=== PATIENT | female | born 1955 | race Native Hawaiian/Other Pacific Islander ===

== ENCOUNTER 2018-10-26 15:08 | Emergency (ER) | payer OTHER ==
[~2018-10-26] VITALS: Ht 172.7 cm; Wt 108.9 kg
[2018-10-26 15:24] VITALS: BP 171/88; TEMP 97.8
[2018-10-26 15:42] LABS: PLATELET COUNT 454 K/uL (152-353)
[2018-10-26 15:48] LABS: POTASSIUM 3.5 mmol/L (3.6-5.2)
== END 2018-10-26 18:15 | disposition short-term general hospital (02) ==
LOC: ED 15:08
PROVIDERS: Emergency Medicine
DX: I21.4 Non-ST elevation (NSTEMI) myocardial infarction (principal); J18.9 Pneumonia, unspecified organism; E11.65 Type 2 diabetes mellitus with hyperglycemia
CPT/HCPCS: 36415; 80053; 83735; 84443; 84484; 85027; 85730; 87040; 87502; 87651; 93005; 96365; 96372; 99284; J0696; J1815

== ENCOUNTER 2018-11-05 17:00 | Inpatient (IN) | payer OTHER ==
[~2018-11-05] VITALS: Ht 172.7 cm; Wt 108.6 kg
[2018-11-05 21:35] VITALS: BP 147/82; TEMP 98; Ht 172.7 cm; Wt 108.6 kg
[2018-11-06] MEDS ORDERED: INSUINJP SC (04:40)
[2018-11-06] MEDS ORDERED: PEPCID40 MG PO (04:42)
[2018-11-06] MEDS ORDERED: ASA LOW DOSE81 MG PO (04:43)
[2018-11-06] MEDS ORDERED: LIPITOR80 MG PO (04:44)
[2018-11-06] MEDS ORDERED: CARV25TA PO (04:45)
[2018-11-06] MEDS ORDERED: FURO40TA93 PO (04:46)
[2018-11-06] MEDS ORDERED: LOSA50TA PO (04:48)
[2018-11-06] MEDS ORDERED: SPIRONOLACT25 MG PO (04:49)
[2018-11-06] MEDS ORDERED: CIPR1SUS OTIC (04:51)
[2018-11-06] MEDS ORDERED: KEPPRA750 MG PO (04:53)
[2018-11-06] MEDS ORDERED: PHENYTOIN EX300 MG PO (04:58)
[2018-11-06] MEDS ORDERED: SERTRALINE HYD100 MG PO (05:03)
[2018-11-06] MEDS ORDERED: ELIQUIS5 MG PO (05:05)
[2018-11-06] MEDS ORDERED: LEVO-T25 MCG PO (05:08)
[2018-11-06] MEDS ORDERED: INSUINJ20 SC (05:11)
[2018-11-06 07:30] VITALS: BP 151/79; TEMP 98
[2018-11-06 19:30] VITALS: BP 127/77; TEMP 98.4
[2018-11-07 07:30] VITALS: BP 131/72; TEMP 98.3
[2018-11-07 19:30] VITALS: BP 165/88; TEMP 98.2
[2018-11-08 07:33] VITALS: BP 131/69; TEMP 98
[2018-11-08 20:00] VITALS: BP 137/71; TEMP 98.6
[2018-11-09 07:30] VITALS: BP 142/73; TEMP 97.6
[2018-11-09 19:30] VITALS: BP 165/87; TEMP 98.4
[2018-11-10 08:00] VITALS: BP 142/80; TEMP 97.9
[2018-11-10 20:01] VITALS: BP 103/50; BP 140/70; TEMP 98.1
[2018-11-11 08:00] VITALS: BP 153/78; TEMP 97.9
[2018-11-11 20:06] VITALS: BP 159/88; TEMP 98
[2018-11-12 08:00] VITALS: BP 150/90; TEMP 97.1
[2018-11-12 09:11] LABS: PLATELET COUNT 356 K/uL (152-353)
[2018-11-12 09:19] LABS: POTASSIUM 4.4 mmol/L (3.6-5.2)
[2018-11-12 20:00] VITALS: BP 145/76; TEMP 98.7
[2018-11-13 08:00] VITALS: BP 140/77; TEMP 98.4
[2018-11-13 20:00] VITALS: BP 140/77; TEMP 98.5
[2018-11-14 06:14] LABS: POTASSIUM 3.9 mmol/L (3.6-5.2)
[2018-11-14 08:00] VITALS: BP 131/66; TEMP 98.4
[2018-11-14 20:00] VITALS: BP 147/78; TEMP 98.3
[2018-11-15 08:00] VITALS: BP 151/80; TEMP 97.7
== END 2018-11-15 13:50 | disposition home or self-care (01) | DRG 92 ==
LOC: MED/SURG 17:00
PROVIDERS: ADMIT Internal Medicine
DX: R26.81 Unsteadiness on feet (principal); G40.89 Other seizures; M62.81 Muscle weakness (generalized); Z87.01 Personal history of pneumonia (recurrent); I25.10 Atherosclerotic heart disease of native coronary artery without angina pectoris; I50.9 Heart failure, unspecified; I10 Essential (primary) hypertension; J44.9 Chronic obstructive pulmonary disease, unspecified; E11.9 Type 2 diabetes mellitus without complications; E78.5 Hyperlipidemia, unspecified; I25.2 Old myocardial infarction
CPT/HCPCS: 36415; 80048; 82550; 82553; 83880; 84484; 85027; 93005; 94640; 94664; 94760; J1815

== ENCOUNTER 2018-11-30 10:24 | Outpatient (CLI) | payer OTHER ==
[~2018-11-30 10:24] MED LIST: ASA LOW DOSE81 MG PO; CARV25TA PO; CIPR1SUS OTIC; ELIQUIS5 MG PO; FURO40TA93 PO; INSUINJ20 SC; INSUINJP SC; KEPPRA750 MG PO; LEVO-T25 MCG PO; LIPITOR80 MG PO; LOSA50TA PO; PEPCID40 MG PO; PHENYTOIN EX300 MG PO; SERTRALINE HYD100 MG PO; SPIRONOLACT25 MG PO
[2018-11-30 10:49] LABS: POTASSIUM 3.3 mmol/L (3.6-5.2)
== END 2018-11-30 19:11 | disposition home or self-care (01) ==
LOC: LABW 10:24
PROVIDERS: Internal Medicine
DX: R06.02 Shortness of breath (principal)
CPT/HCPCS: 36415; 80048; 83880

== ENCOUNTER 2019-02-01 09:33 | Observation (INO) | payer OTHER ==
[~2019-02-01] VITALS: Ht 172.7 cm; Wt 108.4 kg
[2019-02-01] VITALS (10 sets, daily range): BP systolic 157–178; BP diastolic 84–103; TEMP 97.2–98.3; Ht 172.7 cm; Wt 108.4 kg
[2019-02-01] MEDS ORDERED: ENTRESTO 24-261 TAB PO ×2 (09:51→18:31)
[2019-02-01] MEDS ORDERED: ACTOS15 MG PO (09:52)
[2019-02-01] MEDS ORDERED: METF500T PO (09:52)
[2019-02-01 10:11] LABS: PLATELET COUNT 364 K/uL (152-353)
[2019-02-01 10:23] LABS: POTASSIUM 3.2 mmol/L (3.6-5.2); SODIUM 141 mmol/L (136-145)
[2019-02-01] MEDS ORDERED: LIPITOR40 MG PO (18:32)
[2019-02-01] MEDS ORDERED: SPIRONOLACT25 MG PO (18:37)
[2019-02-01] MEDS ORDERED: FURO40TA93 PO (18:38)
[2019-02-02] VITALS: BP 149/77; TEMP 98
[2019-02-02 04:00] VITALS: BP 146/80; TEMP 97.7
[2019-02-02 04:59] LABS: POTASSIUM 3.3 mmol/L (3.6-5.2)
[2019-02-02 08:00] VITALS: BP 129/74; TEMP 97.7
[2019-02-02 12:00] VITALS: BP 118/62; TEMP 97.8
[2019-02-02 16:00] VITALS: BP 118/62; TEMP 97.8
== END 2019-02-02 16:00 | disposition home or self-care (01) ==
LOC: ED 09:33 → MED/SURG 11:50
PROVIDERS: Emergency Medicine; ADMIT Internal Medicine
DX: G40.909 Epilepsy, unspecified, not intractable, without status epilepticus (principal); I50.23 Acute on chronic systolic (congestive) heart failure; R06.02 Shortness of breath; R14.0 Abdominal distension (gaseous); E11.9 Type 2 diabetes mellitus without complications
CPT/HCPCS: 36415; 80048; 80053; 80185; 81000; 82542; 82550; 82553; 82948; 83735; 83880; 84484; 85027; 93005; 94640; 94664; 94760; 96365; 96366; 96374; 96375; 99220; 99284; G0378; J1165; J1815; J1940; J3475

== ENCOUNTER 2019-03-20 15:17 | Outpatient (CLI) | payer OTHER ==
[~2019-03-20 15:17] MED LIST changes: +ACTOS15 MG PO; +ENTRESTO 24-261 TAB PO; +LIPITOR40 MG PO; +METF500T PO
[2019-03-20 15:58] LABS: POTASSIUM 3.1 mmol/L (3.6-5.2)
== END 2019-03-20 23:30 | disposition home or self-care (01) ==
LOC: LAB 15:17
PROVIDERS: Internal Medicine
DX: G40.909 Epilepsy, unspecified, not intractable, without status epilepticus (principal); I10 Essential (primary) hypertension
CPT/HCPCS: 80048; 80185

== ENCOUNTER 2019-03-31 21:27 | Emergency (ER) | payer OTHER ==
[~2019-03-31] VITALS: Ht 172.7 cm; Wt 108.4 kg
[2019-03-31 22:05] LABS: PLATELET COUNT 411 K/uL (152-353)
[2019-03-31 22:17] LABS: POTASSIUM 2.9 mmol/L (3.6-5.2)
[2019-03-31 22:35] LABS: PARTIAL THROMBOPLASTIN TIME 22.8 SECONDS (24.5-33.6)
[2019-04-01] VITALS: TEMP 97.9
[2019-04-01 01:06] VITALS: BP 145/82
== END 2019-04-01 01:10 | disposition short-term general hospital (02) ==
LOC: ED 21:27
PROVIDERS: Hospitalist
PROC: 0T9B70Z Drainage of Bladder with Drainage Device, Via Natural or Artificial Opening (ICD-10-PCS; principal; 2019-03-31)
DX: I20.0 Unstable angina (principal); I50.9 Heart failure, unspecified; I48.91 Unspecified atrial fibrillation; R56.9 Unspecified convulsions
CPT/HCPCS: 36415; 51702; 80053; 80185; 80320; 81000; 82550; 83880; 84484; 85027; 85610; 85730; 93005; 96365; 96375; 99285; J0696; J1940; J2270; J2405

== ENCOUNTER 2019-04-15 22:19 | Emergency (ER) | payer OTHER ==
[~2019-04-15] VITALS: Ht 172.7 cm; Wt 108.4 kg
[2019-04-15 23:19] LABS: PLATELET COUNT 371 K/uL (152-353)
[2019-04-16 02:25] VITALS: BP 155/93; TEMP 97.8
== END 2019-04-16 02:47 | disposition home or self-care (01) ==
LOC: ED 22:19
PROVIDERS: Emergency Medicine
DX: R73.9 Hyperglycemia, unspecified (principal); R56.9 Unspecified convulsions; R10.11 Right upper quadrant pain
CPT/HCPCS: 36415; 80053; 80185; 81000; 82962; 84484; 85027; 93005; 96360; 96365; 96375; 99284; J1165; J1815

== ENCOUNTER 2019-04-24 17:24 | Outpatient (CLI) | payer OTHER ==
[2019-04-24 18:02] LABS: PLATELET COUNT 429 K/uL (152-353)
[2019-04-24 18:21] LABS: POTASSIUM 4.9 mmol/L (3.6-5.2)
== END 2019-04-24 22:20 | disposition home or self-care (01) ==
LOC: LAB 17:24
PROVIDERS: Internal Medicine
DX: I50.89 Other heart failure (principal); I25.10 Atherosclerotic heart disease of native coronary artery without angina pectoris
CPT/HCPCS: 80053; 83880; 85027